=== PATIENT | female | born 1960 | race Caucasian/White ===

== ENCOUNTER 2019-08-26 16:04 | Emergency (ER) | payer BC, OTHER ==
[2019-08-26] MEDS ORDERED: Albuterol 6.7 GM Inhaler INH ONE (16:43)
[2019-08-26] MEDS ORDERED: methylPREDNISolone Sodium Succinate 125 MG/2 ML SDV IM ONE (16:47)
--- NOTE | 2019-08-26 16:55 | EDM.PDOC ---
ED HPI GENERAL MEDICAL PROBLEM - General Chief Complaint: Respiratory Problem Stated Complaint: SOB/ASTHMA Time Seen by Provider: 08/26/19 16:22 Source of Information: Reports: Patient, RN Notes Reviewed History Limitations: Reports: No Limitations - History of Present Illness INITIAL COMMENTS - FREE TEXT/NARRATIVE: Patient is a 59-year-old female who presents to the ED for some ongoing shortness of breath. Patient notes she does have a history of asthma, and she states roughly 3 to 4 weeks ago she began with some nasal congestion/sinus infection. She notes that this got better, but she has been using her inhaler daily as needed, not on a scheduled basis. She states that yesterday she began to start feeling more short of breath, and states that today shortness of breath has become very much worse. Patient did note she had a low-grade fever at home of 99.5 degrees, with some subjective chills, with a dry intermittent cough. Patient states she feels some mild lightheadedness. Patient states that she last took her albuterol inhaler roughly 2 hours prior to arrival to the ER, she notes that the wheezing would just not go away, which prompted her to come to the ER. Patient states that she is not necessarily been around any sick contacts, and her O2 sats have been 96 to 97% on room air. She notes she does have a pulse ox at home and has been monitoring and these have been the same as well. Chest Pain Score (Numeric/FACES): 2 - Related Data Allergies Allergy/AdvReac Type Severity Reaction Status Date / Time Sulfa (Sulfonamide Allergy Rash Verified 08/26/19 16:22 Antibiotics) z-pac Allergy Itching Uncoded 08/26/19 16:22 Home Meds: Home Meds Albuterol Sulfate [Albuterol Sulfate Hfa] 2 puff INH Q4H PRN 03/29/19 [History] Aspirin 162 mg PO DAILY 03/29/19 [History] Clobetasol Propionate [Temovate 0.05% Oint] 1 applic TOP BID 03/29/19 [History] Estrogens, Conjugated [Premarin Vaginal Crm] 0.5 g VAG ASDIRECTED 03/29/19 [ History] Fexofenadine [Clementina] 180 mg PO DAILY 03/29/19 [History] L.acidoph,Paracasei, B.lactis [Probiotic] 1 cap PO DAILY 03/29/19 [History] Levothyroxine [Levothroid] 137 mcg PO DAILY 03/29/19 [History] Metoprolol Succinate 25 mg PO DAILY 03/29/19 [History] Montelukast Sodium 10 mg PO BEDTIME 03/29/19 [History] Omeprazole 20 mg PO DAILY 03/29/19 [History] Ondansetron [Zofran ODT] 4 mg PO Q6H PRN #10 tab.dis 03/29/19 [Rx] Sertraline HCl 150 mg PO DAILY 03/29/19 [History] Ubidecarenone [Coenzyme Q10] 100 mg PO DAILY 03/29/19 [History] atorvaSTATin Calcium [Atorvastatin Calcium] 40 mg PO DAILY 03/29/19 [History] lisinopriL [Lisinopril] 20 mg PO DAILY 03/29/19 [History] metroNIDAZOLE [Metronidazole] 1 applic TOP BID 03/29/19 [History] predniSONE 20 mg PO ASDIRECTED #15 tab 08/26/19 [Rx] Past Medical History Cardiovascular History: Reports: Angina, Hypertension, Stents, Other (See Below) Other Cardiovascular History: LAD Respiratory History: Reports: Asthma, Bronchitis, Recurrent, Sleep Apnea Other Respiratory History: not using machine Gastrointestinal History: Reports: Fatty Liver Genitourinary History: Reports: UTI, Recurrent Psychiatric History: Reports: Depression Endocrine/Metabolic History: Reports: Hypothyroidism Dermatologic History: Reports: Other (See Below) Other Dermatologic History: liken planis; scarring alopeicia Social & Family History - Tobacco Use Smoking Status *Q: Never Smoker Second Hand Smoke Exposure: No - Caffeine Use Caffeine Use: Reports: None - Recreational Drug Use Recreational Drug Use: No ED ROS GENERAL - Review of Systems Review Of Systems: See Below Constitutional: Reports: Fever (low grade at home), Chills Respiratory: Reports: Shortness of Breath, Wheezing (at home, not present in ED) , Cough. Denies: Sputum Cardiovascular: Denies: Chest Pain GI/Abdominal: Denies: Abdominal Pain, Nausea, Vomiting Skin: Denies: Cyanosis ED EXAM, GENERAL - Physical Exam Exam: See Below Exam Limited By: No Limitations General Appearance: Alert, WD/WN, No Apparent Distress Ears: Normal External Exam Throat/Mouth: Normal Inspection, Normal Lips, Normal Teeth, Normal Gums, Normal Oropharynx, Normal Voice, No Airway Compromise Head: Atraumatic, Normocephalic Neck: Normal Inspection Respiratory/Chest: No Respiratory Distress, Lungs Clear, No Accessory Muscle Use , Chest Non-Tender, Decreased Breath Sounds (Diffuse bilaterally) Cardiovascular: Normal Peripheral Pulses, Regular Rate, Rhythm, No Edema, No Murmur Peripheral Pulses: 3+: Radial (L), Radial (R) GI/Abdominal: Normal Bowel Sounds, Soft, Non-Tender, No Distention, No Mass Extremities: Normal Inspection, Normal Capillary Refill Neurological: Alert, Oriented, Normal Cognition, No Motor/Sensory Deficits Psychiatric: Normal Affect, Normal Mood Skin Exam: Warm, Dry, Intact, Normal Color, No Rash Course - Vital Signs Last Recorded V/S: Last Vital Signs Temp 97.2 F 08/26/19 16:18 Pulse 60 08/26/19 16:18 Resp 14 08/26/19 16:18 BP 148/115 H 08/26/19 16:18 Pulse Ox 98 08/26/19 17:08 - Orders/Labs/Meds Orders: Active Orders 24 hr Category Date Time Status Peripheral IV Care [RC] . DIRECTED Care 08/26/19 17:00 Active RT Post Treatment Assessment [RC] Click to Edit Care 08/26/19 16:43 Active RT Pre-Treatment Assessment [RC] Click to Edit Care 08/26/19 16:43 Active CORONAVIRUS COVID-19 PCR PHL Stat Lab 08/26/19 16:46 Ordered Sodium Chloride 0.9% [Saline Flush] Med 08/26/19 17:40 Active 10 ml FLUSH ASDIRECTED PRN Peripheral IV Insertion Adult [OM.PC] Routine Oth 08/26/19 17:00 Ordered Medication Orders Sodium Chloride (Saline Flush) 10 ml FLUSH ASDIRECTED PRN PRN Reason: Keep Vein Open Labs: Laboratory Tests 08/26/19 08/26/19 08/26/19 Range/Units 17:15 17:15 17:15 WBC 7.31 (3.98-10.04) K/mm3 RBC 5.17 (3.98-5.22) M/mm3 Hgb 15.0 (11.2-15.7) gm/dl Hct 44.1 (34.1-44.9) % MCV 85.3 (79.4-94.8) fl MCH 29.0 (25.6-32.2) pg MCHC 34.0 (32.2-35.5) g/dl RDW Std Deviation 41.5 (36.4-46.3) fL Plt Count 232 (182-369) K/mm3 MPV 11.9 (9.4-12.3) fl Neutrophils % (Manual) 55 (40-60) % Band Neutrophils % 0 (0-10) % Lymphocytes % (Manual) 38 (20-40) % Atypical Lymphs % 0 % Monocytes % (Manual) 0 L (2-10) % Eosinophils % (Manual) 3 (0.7-5.8) % Basophils % (Manual) 4 H (0.1-1.2) Platelet Estimate Adequate Plt Morphology Comment Normal RBC Morph Comment Normal PT 10.4 (9.7-12.0) SECONDS INR 0.95 APTT 28 (22-31) SECONDS Sodium (136-145) mEq/L Potassium (3.5-5.1) mEq/L Chloride (98-107) mEq/L Carbon Dioxide (21-32) mEq/L Anion Gap (5-15) BUN (7-18) mg/dL Creatinine (0.55-1.02) mg/dL Est Cr Clr Drug Dosing mL/min Estimated GFR (MDRD) (>60) mL/min BUN/Creatinine Ratio (14-18) Glucose (80-115) mg/dL Calcium (8.5-10.1) mg/dL Magnesium (1.8-2.4) mg/dl Ferritin (8-252) ng/ml Total Bilirubin (0.2-1.0) mg/dL AST (15-37) U/L ALT (14-59) U/L Alkaline Phosphatase (46-116) U/L Lactate Dehydrogenase (81-234) U/L Creatine Kinase (26-192) U/L C-Reactive Protein 0.2 (<1.0) mg/dL Total Protein (6.4-8.2) g/dl Albumin (3.4-5.0) g/dl Globulin gm/dL Albumin/Globulin Ratio (1-2) 08/26/19 08/26/19 Range/Units 17:15 17:15 WBC (3.98-10.04) K/mm3 RBC (3.98-5.22) M/mm3 Hgb (11.2-15.7) gm/dl Hct (34.1-44.9) % MCV (79.4-94.8) fl MCH (25.6-32.2) pg MCHC (32.2-35.5) g/dl RDW Std Deviation (36.4-46.3) fL Plt Count (182-369) K/mm3 MPV (9.4-12.3) fl Neutrophils % (Manual) (40-60) % Band Neutrophils % (0-10) % Lymphocytes % (Manual) (20-40) % Atypical Lymphs % % Monocytes % (Manual) (2-10) % Eosinophils % (Manual) (0.7-5.8) % Basophils % (Manual) (0.1-1.2) Platelet Estimate Plt Morphology Comment RBC Morph Comment PT (9.7-12.0) SECONDS INR APTT (22-31) SECONDS Sodium 141 (136-145) mEq/L Potassium 4.1 (3.5-5.1) mEq/L Chloride 106 (98-107) mEq/L Carbon Dioxide 24 (21-32) mEq/L Anion Gap 15.1 H (5-15) BUN 17 (7-18) mg/dL Creatinine 0.8 (0.55-1.02) mg/dL Est Cr Clr Drug Dosing 58.41 mL/min Estimated GFR (MDRD) > 60 (>60) mL/min BUN/Creatinine Ratio 21.3 H (14-18) Glucose 91 (80-115) mg/dL Calcium 9.7 (8.5-10.1) mg/dL Magnesium 2.2 (1.8-2.4) mg/dl Ferritin 223 (8-252) ng/ml Total Bilirubin 0.4 (0.2-1.0) mg/dL AST 29 (15-37) U/L ALT 52 (14-59) U/L Alkaline Phosphatase 73 (46-116) U/L Lactate Dehydrogenase 202 (81-234) U/L Creatine Kinase 81 (26-192) U/L C-Reactive Protein (<1.0) mg/dL Total Protein 7.4 (6.4-8.2) g/dl Albumin 4.4 (3.4-5.0) g/dl Globulin 3.0 gm/dL Albumin/Globulin Ratio 1.5 (1-2) Meds: Medications Generic Name Dose Route Start Last Admin Trade Name Freq PRN Reason Stop Dose Admin Sodium Chloride 10 ml 08/26/19 17:40 Saline Flush FLUSH ASDIRECTED PRN Keep Vein Open Discontinued Medications Generic Name Dose Route Start Last Admin Trade Name Freq PRN Reason Stop Dose Admin Albuterol 0 gm 08/26/19 16:43 08/26/19 17:08 Proventil Hfa INH 08/26/19 16:44 2 puff ONETIME ONE Administration Methylprednisolone Sodium Succinate 125 mg 08/26/19 16:47 08/26/19 17:22 Solu-Medrol IM 08/26/19 16:48 Not Given ONETIME ONE Methylprednisolone Sodium Succinate 125 mg 08/26/19 17:21 08/26/19 17:22 Solu-Medrol IVPUSH 08/26/19 17:22 125 mg ONETIME ONE Administration - Re-Assessments/Exams Free Text/Narrative Re-Assessment/Exam: 08/26/19 16:58 Patient presents to the ED for some shortness of breath with a history of asthma. At this time ordered labs to try to rule out COVID-19, patient will be given an albuterol inhaler here to see if this does not help her symptoms, and 125 mg of IV Solu-Medrol for initial management. I highly suspect that the patient is suffering more from her chronic asthma issues, as she states this does seem similar to her other exacerbations in the past. 08/26/19 17:29 The patient's chest x-ray is back, and demonstrates no acute processes noted on the portable chest x-ray. No sign of any infiltrates or consolidation to suggest pneumonia; viral/bacterial or otherwise. 08/26/19 18:31 Patient's laboratory evaluation has completed, and everything is within normal limits, there is nothing to suggest that the patient would be infected with coronavirus due to the labs taken today. We will treat her more as if this is an asthma exacerbation, and sent her home with an outpatient course of prednisone. Departure - Departure Time of Disposition: 18:31 Disposition: Home, Self-Care 01 Condition: Fair Clinical Impression: Exacerbation of asthma Qualifiers: Asthma severity: mild Asthma persistence: unspecified Qualified Code(s): J45.901 - Unspecified asthma with (acute) exacerbation - Discharge Information *PRESCRIPTION DRUG MONITORING PROGRAM REVIEWED*: No *COPY OF PRESCRIPTION DRUG MONITORING REPORT IN PATIENT FRANSISCO: No Instructions: Asthma, Adult, [id number] Referrals: Guillaume Feng MD [Primary Care Provider] - Forms: ED Department Discharge Additional Instructions: You were seen in the ER today for ongoing and/or worsening respiratory symptoms. Your chest x-ray showed no signs of pneumonia at this time. Your oxygen levels were great at 97-98% on room air. At this time we did test you for coronavirus (COVID-19). Swabs are sent from this facility on a daily basis, at 2:30 PM, you should expect up to 3-5 business days for positive or negative results. However you may receive results earlier than this. We are doing our best to call as soon as we get results from the [place] dept. of Health. It is recommended at this time that you go home and self quarantine and try to limit exposure to other as much as possible. Although you were tested for coronavirus, you did have other laboratory evaluation done at today's visit, and all of this was essentially within normal limits, and is not suggestive of a COVID-19 infection, and is more likely an acute asthma exacerbation. You have been given a prescription for prednisone, please take as directed, this was electronically prescribed to [facility] located near [facility], they are open until 8 PM tonight, or from 12 to 4 PM tomorrow. Recommend that you take your albuterol inhaler, 2 puffs 4 times a day for the next 2 days, then 2 puffs 3 times a day for the next 2 days, then 2 puffs 2 times a day for the next 2 days, and then on a PRN basis. Please try to increase your oral fluid intake, and eat multiple small meals throughout the day, to keep yourself healthy. Please return to the ER at any time if symptoms should change or worsen. Sepsis Event Note - Evaluation Sepsis Screening Result: No Definite Risk - Focused Exam Vital Signs: Vital Signs Temp Pulse Resp BP Pulse Ox Pulse Ox 08/26/19 17:08 98 08/26/19 16:18 97.2 F 60 14 148/115 H 100 Date Exam was Performed: 08/26/19 Time Exam was Performed: 18:30 - My Orders Last 24 Hours: My Active Orders 08/26/19 16:43 RT Post Treatment Assessment [RC] Click to Edit RT Pre-Treatment Assessment [RC] Click to Edit 08/26/19 16:46 CORONAVIRUS COVID-19 PCR PHL Stat 08/26/19 17:00 Peripheral IV Care [RC] . DIRECTED Peripheral IV Insertion Adult [OM.PC] Routine 08/26/19 17:40 Sodium Chloride 0.9% [Saline Flush] 10 ml FLUSH ASDIRECTED PRN - Assessment/Plan Last 24 Hours: My Active Orders 08/26/19 16:43 RT Post Treatment Assessment [RC] Click to Edit RT Pre-Treatment Assessment [RC] Click to Edit 08/26/19 16:46 CORONAVIRUS COVID-19 PCR PHL Stat 08/26/19 17:00 Peripheral IV Care [RC] . DIRECTED Peripheral IV Insertion Adult [OM.PC] Routine 08/26/19 17:40 Sodium Chloride 0.9% [Saline Flush] 10 ml FLUSH ASDIRECTED PRN
[2019-08-26] MEDS ORDERED: methylPREDNISolone Sodium Succinate 125 MG/2 ML SDV IVPUSH ONE (17:21)
--- NOTE | 2019-08-26 17:27 | CR ---
Chest: Portable view of the chest was obtained. Comparison: Previous chest x-ray of 03/29/19. Heart size and mediastinum are normal. Lungs show no acute parenchymal change. Mild degenerative change is partially visualized within the spine. Impression: 1. Nothing acute is appreciated on portable chest x-ray. Diagnostic code #2 Study was dictated in MDT
[2019-08-26] MEDS ORDERED: Sodium Chloride 0.9% 10 ML Syringe FLUSH PRN (17:40)
== END 2019-08-26 18:50 | disposition home or self-care (01) ==
LOC: JD.ED 16:04
DX: J45.901 Unspecified asthma with (acute) exacerbation (principal); I10 Essential (primary) hypertension; F32.9 Major depressive disorder, single episode, unspecified; E03.9 Hypothyroidism, unspecified; Z79.899 Other long term (current) drug therapy; Z79.82 Long term (current) use of aspirin; Z88.2 Allergy status to sulfonamides; Z88.1 Allergy status to other antibiotic agents
CPT/HCPCS: 36415; 71045; 80053; 82550; 82728; 83615; 83735; 85007; 85027; 85610; 85730; 86140; 87635; 94640; 96374; 99285; A9270; J2930; 99283; U0002

== ENCOUNTER 2021-05-12 15:01 | Emergency (ER) | payer BC ==
[2021-05-12] MEDS ORDERED: Ondansetron 4 MG/2 ML SDV IVPUSH ONE (16:28)
[2021-05-12] MEDS ORDERED: Sodium Chloride 0.9% 1,000 ML IV SCH (16:30)
--- NOTE | 2021-05-12 18:09 | EDM.PDOC ---
ED HPI GENERAL MEDICAL PROBLEM - General Chief Complaint: Flank Pain Stated Complaint: RT LOWER SIDE PAIN Time Seen by Provider: 05/12/21 17:41 Source of Information: Reports: Patient, Family History Limitations: Reports: No Limitations - History of Present Illness INITIAL COMMENTS - FREE TEXT/NARRATIVE: Patient presents with increasing right flank pain. Been onset for many years however after having control of her bowel movements with laxatives and Colace and diet she has gotten better up until last few days when she has had more frequent dull continuous pain that is occasionally sharp and stabbing. She went to her primary care on May 09 however they were not able to schedule a CT scan was given pain medications. Is continued to get worse to the point where it is difficult to find a comfortable position usually but little bit better laying flat but worse with sitting or standing as noted loose stools/watery stools now no bloody stools noted but nauseated but no vomiting has Zofran for nausea. She is postoperative gastric sleeve procedure. She does not complain of any surgical site pain. She denies any chest pain shortness of breath or breathing problems. Does feel somewhat lightheaded at times and nauseated but no fevers chills or sweats some runny nose but no sore throat no Covid symptoms no PE symptoms no lower extremity swelling. She does have a history however of a stent to her LAD and coronary disease. She is trying to get off her blood pressure medications and on her visit on the her blood pressure was much improved and she is stopped her amlodipine. Right Flank Pain Score (Numeric/FACES): 7 - Related Data Allergies Allergy/AdvReac Type Severity Reaction Status Date / Time Sulfa (Sulfonamide Allergy Severe Rash Verified 05/12/21 16:17 Antibiotics) z-pac Allergy Severe Itching Uncoded 05/12/21 16:17 Home Meds: Home Meds Albuterol Sulfate [Albuterol Sulfate Hfa] 2 puff INH Q4H PRN 03/29/19 [History] Aspirin 162 mg PO DAILY 03/29/19 [History] Clobetasol Propionate [Temovate 0.05% Oint] 1 applic TOP BID 03/29/19 [History] Estrogens, Conjugated [Premarin Vaginal Crm] 0.5 g VAG ASDIRECTED 03/29/19 [History] Fexofenadine [Clementina] 180 mg PO DAILY 03/29/19 [History] L.acidoph,Paracasei, B.lactis [Probiotic] 1 cap PO DAILY 03/29/19 [History] Levothyroxine [Levothroid] 137 mcg PO DAILY 03/29/19 [History] Metoprolol Succinate 25 mg PO DAILY 03/29/19 [History] Montelukast Sodium 10 mg PO BEDTIME 03/29/19 [History] Omeprazole 20 mg PO DAILY 03/29/19 [History] Ondansetron [Zofran ODT] 4 mg PO Q6H PRN #10 tab.dis 03/29/19 [Rx] Sertraline HCl 150 mg PO DAILY 03/29/19 [History] Ubidecarenone [Coenzyme Q10] 100 mg PO DAILY 03/29/19 [History] atorvaSTATin Calcium [Atorvastatin Calcium] 40 mg PO DAILY 03/29/19 [History] lisinopriL [Lisinopril] 20 mg PO DAILY 03/29/19 [History] metroNIDAZOLE [Metronidazole] 1 applic TOP BID 03/29/19 [History] predniSONE 20 mg PO ASDIRECTED #15 tab 08/26/19 [Rx] Past Medical History Cardiovascular History: Reports: Angina, Hypertension, Stents, Other (See Below) Other Cardiovascular History: 2015 stents Respiratory History: Reports: Asthma, Bronchitis, Recurrent, Sleep Apnea Other Respiratory History: not using machine Gastrointestinal History: Reports: Fatty Liver Genitourinary History: Reports: UTI, Recurrent Psychiatric History: Reports: Depression Endocrine/Metabolic History: Reports: Hypothyroidism Dermatologic History: Reports: Other (See Below) Other Dermatologic History: liken planis; scarring alopeicia - Infectious Disease History Infectious Disease History: Reports: Chicken Pox, Measles, Novel Coronavirus - Past Surgical History GI Surgical History: Reports: Other (See Below) Other GI Surgeries/Procedures: gastric sleeve Social & Family History - Tobacco Use Tobacco Use Status *Q: Never Tobacco User - Caffeine Use Caffeine Use: Reports: Coffee, Tea - Recreational Drug Use Recreational Drug Use: No ED ROS GENERAL - Review of Systems Review Of Systems: See Below Constitutional: Denies: Fever, Chills, Weakness HEENT: Reports: Rhinitis. Denies: Sinus Problem, Throat Pain Respiratory: Denies: Shortness of Breath, Wheezing, Pleuritic Chest Pain, Cough Cardiovascular: Denies: Chest Pain, Dyspnea on Exertion, Edema, Lightheadedness, Palpitations, Syncope Endocrine: Denies: Polydypsia GI/Abdominal: Reports: Abdominal Pain, Diarrhea, Decreased Appetite, Nausea. Denies: Black Stool, Bloody Stool, Hematochezia, Melena, Mucous in Stool, Vomiting : Reports: Flank Pain. Denies: Dysuria, Frequency, Hematuria Musculoskeletal: Denies: Neck Pain Skin: Reports: No Symptoms Neurological: Reports: No Symptoms. Denies: Headache, Syncope Psychiatric: Reports: No Symptoms ED EXAM, RENAL/ - Physical Exam Exam: See Below Exam Limited By: No Limitations General Appearance: Alert, WD/WN, No Apparent Distress Throat/Mouth: Normal Inspection, Normal Gums, Normal Oropharynx, Normal Voice, No Airway Compromise, Dysphagia Head: Atraumatic Neck: Normal Inspection, Supple Respiratory/Chest: No Respiratory Distress, Lungs Clear, Normal Breath Sounds, Chest Non-Tender Cardiovascular: Normal Peripheral Pulses, Regular Rate, Rhythm, No Edema, No JVD, No Murmur GI/Abdominal: Normal Bowel Sounds, Soft, Tender, Other (Surgical sites from her laparoscopic gastric sleeve procedure is well-healed no signs of any major tenderness redness or warmth to the areas. Numbness is more in the right flank some in the right upper quadrant no Paez's tenderness). No: Guarding, Mass, Hepatomegaly, Splenomegaly Back Exam: Normal Inspection, CVA Tenderness (R). No: CVA Tenderness (L) Extremities: Normal Inspection Neurological: Alert, Oriented Psychiatric: Normal Affect Skin Exam: Warm, Dry #1 Interpretation EKG Date: 05/12/21 Time: 18:18 Rhythm: NSR Rate (Beats/Min): 58 Central: LAD-Left Central Deviation (The EKG showing sinus rhythm rate of 58 OR is 160 QRS is 76 QT corrected 433 no acute ischemic changes noted.) P-Wave: Present QRS: Normal ST-T: Normal QT: Normal Comparison: NA - No Prior EKG Course - Vital Signs Last Recorded V/S: Last Vital Signs Temp 97.3 F 05/12/21 16:20 Pulse 61 05/12/21 16:20 Resp 20 05/12/21 16:20 BP 110/76 05/12/21 16:20 Pulse Ox 99 05/12/21 16:20 - Orders/Labs/Meds Orders: Active Orders 24 hr Category Date Time Status Communication Order [RC] ASDIRECTED Care 05/12/21 16:29 Active Communication Order [RC] ASDIRECTED Care 05/12/21 16:29 Active Communication Order [RC] ASDIRECTED Care 05/12/21 16:29 Active Peripheral IV Care [RC] . DIRECTED Care 05/12/21 16:30 Active Abdomen Pelvis w Cont [CT] Stat Exams 05/12/21 18:04 Taken Sodium Chloride 0.9% [Normal Saline] 1,000 ml Med 05/12/21 16:30 Active IV ASDIRECTED Peripheral IV Insertion Adult [OM.PC] Stat Oth 05/12/21 16:29 Ordered EKG 12 Lead [EK] Stat Ther 05/12/21 18:03 Ordered Medication Orders Sodium Chloride (Normal Saline) 1,000 mls @ 150 mls/hr IV ASDIRECTED JERICHO Last Admin: 05/12/21 17:16 Dose: 150 mls/hr Documented by: CLARISSA Labs: Laboratory Tests 05/12/21 05/12/21 05/12/21 Range/Units 16:30 17:09 17:09 WBC 6.91 (3.98-10.04) K/mm3 RBC 5.15 (3.98-5.22) M/mm3 Hgb 14.7 (11.2-15.7) gm/dl Hct 45.2 H (34.1-44.9) % MCV 87.8 (79.4-94.8) fl MCH 28.5 (25.6-32.2) pg MCHC 32.5 (32.2-35.5) g/dl RDW Std Deviation 41.9 (36.4-46.3) fL Plt Count 225 (182-369) K/mm3 MPV 12.9 H (9.4-12.3) fl Neut % (Auto) 62.9 (34.0-71.1) % Lymph % (Auto) 23.9 (19.3-51.7) % [place] % (Auto) 10.0 (4.7-12.5) % Eos % (Auto) 2.7 (0.7-5.8) Baso % (Auto) 0.4 (0.1-1.2) % Neut # (Auto) 4.34 (1.56-6.13) K/mm3 Lymph # (Auto) 1.65 (1.18-3.74) K/mm3 [place] # (Auto) 0.69 H (0.24-0.36) K/mm3 Eos # (Auto) 0.19 (0.04-0.36) K/mm3 Baso # (Auto) 0.03 (0.01-0.08) K/mm3 Sodium 139 (136-145) mEq/L Potassium 4.8 (3.5-5.1) mEq/L Chloride 102 (98-107) mEq/L Carbon Dioxide 24 (21-32) mEq/L Anion Gap 17.8 H (5-15) BUN 16 (7-18) mg/dL Creatinine 1.0 (0.55-1.02) mg/dL Est Cr Clr Drug Dosing 45.54 mL/min Estimated GFR (MDRD) 56 (>60) mL/min BUN/Creatinine Ratio 16.0 (14-18) Glucose 89 (70-99) mg/dL Calcium 9.3 (8.5-10.1) mg/dL Total Bilirubin 0.5 (0.2-1.0) mg/dL AST 39 H (15-37) U/L ALT 40 (14-59) U/L Alkaline Phosphatase 71 (46-116) U/L Total Protein 6.9 (6.4-8.2) g/dl Albumin 4.1 (3.4-5.0) g/dl Globulin 2.8 gm/dL Albumin/Globulin Ratio 1.5 (1-2) Lipase (73-393) U/L Urine Color Yellow (Yellow) Urine Appearance Clear (Clear) Urine pH 5.5 (5.0-8.0) Ur Specific Webb 1.015 (1.005-1.030) Urine Protein Negative (Negative) Urine Glucose (UA) Negative (Negative) Urine Ketones 1+ H (Negative) Urine Occult Blood Negative (Negative) Urine Nitrite Negative (Negative) Urine Bilirubin 1+ H (Negative) Urine Urobilinogen 0.2 (0.2-1.0) Ur Leukocyte Esterase Trace H (Negative) Urine RBC 0-5 (0-5) /hpf Urine WBC 5-10 H (0-5) /hpf Ur Squamous Epith Cells 0-5 (0-5) /hpf Urine Bacteria Few (FEW) /hpf Urine Mucus Moderate H (FEW) /hpf 05/12/21 Range/Units 17:09 WBC (3.98-10.04) K/mm3 RBC (3.98-5.22) M/mm3 Hgb (11.2-15.7) gm/dl Hct (34.1-44.9) % MCV (79.4-94.8) fl MCH (25.6-32.2) pg MCHC (32.2-35.5) g/dl RDW Std Deviation (36.4-46.3) fL Plt Count (182-369) K/mm3 MPV (9.4-12.3) fl Neut % (Auto) (34.0-71.1) % Lymph % (Auto) (19.3-51.7) % [place] % (Auto) (4.7-12.5) % Eos % (Auto) (0.7-5.8) Baso % (Auto) (0.1-1.2) % Neut # (Auto) (1.56-6.13) K/mm3 Lymph # (Auto) (1.18-3.74) K/mm3 [place] # (Auto) (0.24-0.36) K/mm3 Eos # (Auto) (0.04-0.36) K/mm3 Baso # (Auto) (0.01-0.08) K/mm3 Sodium (136-145) mEq/L Potassium (3.5-5.1) mEq/L Chloride (98-107) mEq/L Carbon Dioxide (21-32) mEq/L Anion Gap (5-15) BUN (7-18) mg/dL Creatinine (0.55-1.02) mg/dL Est Cr Clr Drug Dosing mL/min Estimated GFR (MDRD) (>60) mL/min BUN/Creatinine Ratio (14-18) Glucose (70-99) mg/dL Calcium (8.5-10.1) mg/dL Total Bilirubin (0.2-1.0) mg/dL AST (15-37) U/L ALT (14-59) U/L Alkaline Phosphatase (46-116) U/L Total Protein (6.4-8.2) g/dl Albumin (3.4-5.0) g/dl Globulin gm/dL Albumin/Globulin Ratio (1-2) Lipase 576 H (73-393) U/L Urine Color (Yellow) Urine Appearance (Clear) Urine pH (5.0-8.0) Ur Specific Webb (1.005-1.030) Urine Protein (Negative) Urine Glucose (UA) (Negative) Urine Ketones (Negative) Urine Occult Blood (Negative) Urine Nitrite (Negative) Urine Bilirubin (Negative) Urine Urobilinogen (0.2-1.0) Ur Leukocyte Esterase (Negative) Urine RBC (0-5) /hpf Urine WBC (0-5) /hpf Ur Squamous Epith Cells (0-5) /hpf Urine Bacteria (FEW) /hpf Urine Mucus (FEW) /hpf Meds: Medications Generic Name Dose Route Start Last Admin Trade Name Freq PRN Reason Stop Dose Admin Sodium Chloride 1,000 mls @ 150 mls/hr 05/12/21 16:30 05/12/21 17:16 Normal Saline IV 150 mls/hr ASDIRECTED JERICHO Administration Discontinued Medications Generic Name Dose Route Start Last Admin Trade Name Freq PRN Reason Stop Dose Admin Iopamidol 100 ml 05/12/21 20:36 05/12/21 20:38 Iopamidol 612 Mg/Ml 100 Ml Bottle IVPUSH 05/12/21 20:37 100 ml ONETIME ONE Administration Ondansetron HCl 4 mg 05/12/21 16:28 05/12/21 17:17 Ondansetron 4 Mg/2 Ml Sdv IVPUSH 05/12/21 16:29 4 mg ONETIME ONE Administration Sodium Chloride 10 ml 05/12/21 20:36 05/12/21 20:38 Sodium Chloride 0.9% 10 Ml Syringe FLUSH 05/12/21 20:37 10 ml ONETIME ONE Administration - Radiology Interpretation Free Text/Narrative:: No acute process when the abdomen and pelvis team intermittent meters incidental pulmonary nodule right middle lobe based on radiology [facility] [employer] no follow- up on this nodule indicated non-smoker. CT Results Date: 05/12/21 CT Results Time: 20:10 - Re-Assessments/Exams Free Text/Narrative Re-Assessment/Exam: 05/12/21 18:09 Rule out for acute diverticulitis bowel obstruction pyelonephritis kidney stone/renal colic, acute cholecystitis seems unlikely PE or acute coronary syndrome 05/12/21 19:15 White count 6900 hemoglobin of 14.7 crit of 45.2 platelet count 225,000.69 number of monocytes no left shift sodium 139 potassium 4.8 chloride 102 CO2 is 24 BUN 16 creatinine 1.0 total bilirubin 0.5 AST 39 ALT is 40 alkaline phosphatase is normal lipase is 576 urine is positive for ketones bilirubin trace leukocyte esterase 5-10 white cells moderate mucus. 05/12/21 20:28 Patient pain is improved. I reviewed least lab results showing an elevation of her lipase of 576, alkaline phos is otherwise normal, total bilirubin is normal, await the final CT scan results. 05/12/21 20:[address] findings. No signs of acute pancreatitis at least by CT scan. We will treat the patient with the pain, liquid diet, follow-up with primary care and return precautions given. Departure - Departure Time of Disposition: 21:00 Disposition: Home, Self-Care 01 Condition: Fair Clinical Impression: Pancreatitis, acute Qualifiers: Pancreatitis type: idiopathic Acute pancreatitis complication: no infection or necrosis Qualified Code(s): K85.00 - Idiopathic acute pancreatitis without necrosis or infection - Discharge Information Instructions: Acute Pancreatitis, [id number] Referrals: Guillaume Feng MD [Primary Care Provider] - Forms: ED Department Discharge Additional Instructions: Follow-up with your primary care physician this week. Drink plenty of water and fluids. May use your pain medicine as directed for pain. Return to emergency room with any increasing pain, fevers, vomiting unable keep down fluids, unable to pass gas or stool per rectum or worsening. Sepsis Event Note (ED) - Focused Exam Vital Signs: Vital Signs Temp Pulse Resp BP Pulse Ox 05/12/21 16:20 97.3 F 61 20 110/76 99 - My Orders Last 24 Hours: My Active Orders 05/12/21 16:29 Communication Order [RC] ASDIRECTED Communication Order [RC] ASDIRECTED Communication Order [RC] ASDIRECTED Peripheral IV Insertion Adult [OM.PC] Stat 05/12/21 16:30 Peripheral IV Care [RC] . DIRECTED Sodium Chloride 0.9% [Normal Saline] 1,000 ml IV ASDIRECTED 05/12/21 18:03 EKG 12 Lead [EK] Stat 05/12/21 18:04 Abdomen Pelvis w Cont [CT] Stat - Assessment/Plan Last 24 Hours: My Active Orders 05/12/21 16:29 Communication Order [RC] ASDIRECTED Communication Order [RC] ASDIRECTED Communication Order [RC] ASDIRECTED Peripheral IV Insertion Adult [OM.PC] Stat 05/12/21 16:30 Peripheral IV Care [RC] . DIRECTED Sodium Chloride 0.9% [Normal Saline] 1,000 ml IV ASDIRECTED 05/12/21 18:03 EKG 12 Lead [EK] Stat 05/12/21 18:04 Abdomen Pelvis w Cont [CT] Stat
[2021-05-12] MEDS ORDERED: Sodium Chloride 0.9% 10 ML Syringe FLUSH ONE (20:36)
[2021-05-12] MEDS ORDERED: Iopamidol 612 MG/ML 100 ML Bottle IVPUSH ONE (20:36)
--- NOTE | 2021-05-13 08:55 | CT ---
CT abdomen and pelvis Technique: Multiple axial sections were obtained from above the dome of the diaphragm inferiorly through the pubic symphysis. Intravenous and oral contrast were utilized. Reconstructed coronal and sagittal images were obtained. Delayed images were also obtained through the bladder. Comparison: Prior abdominal imaging of a cholescintigraphy dated 01/19/20, prior abdominal x-ray of 03/29/19 and right upper quadrant abdominal ultrasound of 03/29/19. Findings: Visualized lung bases show a small subpleural based nodule measuring about 3 mm within the right middle lobe. Nothing acute is appreciated within the visualized lung bases. Liver shows two low density lesions within the left lobe. These are felt to be stable from prior ultrasound exam. No acute abnormality is seen within the liver. Spleen size is normal. Gallbladder contains no gallstones. Adrenal glands show no nodule. Pancreas appears within normal limits. Kidneys show symmetric contrast enhancement. Minimal low-density lesion is noted within the inferior right kidney measuring about 2.4 mm. This is too small to accurately get a Hounsfield unit measurements but most likely represents a minimal cyst. Small 7 mm finding is seen within the inferior left kidney possibly due to a small hemorrhagic cyst. Abdominal aorta shows diffuse atherosclerotic calcification which continues into the iliac vessels. No aneurysm is seen. No retroperitoneal adenopathy or mesenteric abnormalities are seen. Short appendix is felt to be seen. No dilatation is seen within the appendix. No pelvic mass or adenopathy is seen. Delayed images show contrast within the distal ureters as well as contrast within the bladder. Impression: 1. Two cysts within the liver which are stable from prior ultrasound. 2. Small abnormality within the inferior left kidney measuring 7 mm. This most likely represents a small hemorrhagic cyst. Minimal 2.4 mm lesion is seen within the inferior right kidney which is too small to measure but most likely represents a minimal cyst. 3. Small 3 mm nodule within the right middle lobe which does not meet criteria for follow-up. 4. Nothing acute is otherwise seen on CT study of the abdomen and pelvis. Diagnostic code #2 I agree with preliminary report from [facility], finalized on 05/12/21, 9:49 PM [employer]
== END 2021-05-12 21:31 | disposition home or self-care (01) ==
LOC: JD.ED 15:01
DX: K85.00 Idiopathic acute pancreatitis without necrosis or infection (principal); E03.9 Hypothyroidism, unspecified; Z88.2 Allergy status to sulfonamides; Z88.1 Allergy status to other antibiotic agents; Z79.82 Long term (current) use of aspirin; Z79.899 Other long term (current) drug therapy
CPT/HCPCS: 36415; 74177; 80053; 81001; 83690; 85025; 93005; 96374; 99284; J2405; J7030; Q9967